=== PATIENT | female | born 1965 | race Caucasian/White ===

== ENCOUNTER 2023-02-14 16:34 | Emergency (ER) | payer OTHER ==
[2023-02-14 16:51] VITALS: TEMP 98.1; BMI 22.4
[2023-02-14] MEDS ORDERED: ACETAMINOPHEN 1000 MG/100 ML BAG IVPB ONE (17:15)
[2023-02-14 17:32] LABS: HEMATOCRIT 42.8 % (32.4-45.2); HEMOGLOBIN 14.7 G/dL (10.7-15.3); MCHC 34.4 g/dl (32.0-36.0); MEAN CELL VOLUME 90.1 fl (80-96); MEAN PLT VOLUME 8.5 fl (7.5-11.1); PLATELET COUNT 325.7 10^3/uL (134-434); RBC 4.75 10^6/uL (3.60-5.2); RDW 13.7 % (11.6-15.6); WHITE BLOOD COUNT 12.6 10^3/uL (4.0-10.8)
[2023-02-14 17:34] LABS: INR 0.95 (0.83-1.09); PROTHROMBIN TIME (PATIENT) 10.9 SEC (9.7-13.0)
[2023-02-14 17:36] LABS: ACTIVATED PTT 30.8 SECONDS (25.2-36.5)
[2023-02-14 17:40] LABS: BILIRUBIN,TOTAL 0.9 mg/dl (0.2-1); CALCIUM 9.8 mg/dl (8.5-10); CREATININE 0.7 mg/dl (0.55-1.3); POTASSIUM 4.3 mmol/L (3.5-5.1)
[2023-02-14] MEDS ORDERED: ACETAMINOPHEN INJECTION 100 ML IVPB ONE (17:43)
[2023-02-14] MEDS ORDERED: SODIUM CHLORIDE 0.9% 500 ML INFUS.BAG IV ONE (18:03)
[2023-02-14] MEDS ORDERED: KETOROLAC TROMETHAMINE 30 MG/1 ML VIAL IVPUSH ONE (20:08)
[2023-02-14 20:09] VITALS: BP 139/91; PULSE 77; RESP 16
[2023-02-14] MEDS ORDERED: KETOROLAC TROMETHAMINE 30 MG/1 ML VIAL ONE (20:10)
[2023-02-14 21:50] LABS: PLATELET ESTIMATE ADEQUATE
[2023-02-14] MEDS ORDERED: HYALURONIDASE, HUMAN RECOMB (HYLENEX) 150 UNIT/ML VIAL SQ ONE (22:39)
[2023-02-15] MEDS ORDERED: HYALURONIDASE, HUMAN RECOMB (HYLENEX) 150 UNIT/ML VIAL SQ ONE ×2 (01:45)
== END 2023-02-14 22:00 | disposition home or self-care (01) ==
LOC: FER 16:34
PROC: 3E033NZ Introduction of Analgesics, Hypnotics, Sedatives into Peripheral Vein, Percutaneous Approach (ICD-10-PCS; principal; 2023-02-14)
PROC: 3E033GC Introduction of Other Therapeutic Substance into Peripheral Vein, Percutaneous Approach (ICD-10-PCS; 2023-02-14)
DX: R22.0 Localized swelling, mass and lump, head (principal); M27.2 Inflammatory conditions of jaws
CPT/HCPCS: 36415; 70487-TC; 70491-TC; 80053; 85027; 85610; 85730; 87040; 99285-25; Q9967

== ENCOUNTER 2023-02-14 23:40 | Observation (INO) | payer OTHER ==
[2023-02-15] MEDS ORDERED: LIDOCAINE HCL 1%, 10 MG/ML (50 mL VIAL) INF ONE (00:13)
[2023-02-15] MEDS ORDERED: LIDOCAINE HCL 1%, 10 MG/ML (10ML VIAL) MDV ONE (00:17)
[2023-02-15] MEDS ORDERED: LIDOCAINE HCL/PF 1% SDV 5ML VIAL ONE (00:18)
[2023-02-15] MEDS ORDERED: HYALURONIDASE, HUMAN RECOMB (HYLENEX) 150 UNIT/ML VIAL SQ ONE ×2 (00:46→01:40)
[2023-02-15] MEDS ORDERED: ACETAMINOPHEN 1000 MG/100 ML BAG IVPB ONE (02:48)
[2023-02-15] MEDS ORDERED: morphine CARPU-JECT 4 MG/1 ML DISP.SYRIN IVPUSH ONE (02:48)
[2023-02-15] MEDS ORDERED: morphine SULFATE 4 MG/ML VIAL ONE (02:55)
[2023-02-15] MEDS ORDERED: ACETAMINOPHEN INJECTION 100 ML IVPB ONE (02:55)
[2023-02-15 03:11] LABS: BASO % 0.6 % (0-2.0); EOS % 0.5 % (0-4.5); HEMATOCRIT 36.2 % (32.4-45.2); HEMOGLOBIN 12.4 GM/dL (10.7-15.3); LYMPH % 35.3 % (8-40); MCH 29.6 pg (25.7-33.7); MCHC 34.3 g/dl (32.0-36.0); MEAN CELL VOLUME 86.3 fl (80-96); MEAN PLT VOLUME 8.1 fl (7.5-11.1); MONO % 8.5 % (3.8-10.2); NEUT % 55.1 % (42.8-82.8); PLATELET COUNT 311 10^3/uL (134-434); RDW 13.1 % (11.6-15.6); WHITE BLOOD COUNT 8.6 K/mm3 (4.0-10.0)
[2023-02-15] MEDS ORDERED: CLINDAMYCIN 600MG PREMIX IVPB 600 MG/50 ML BAG IVPB SCH (03:15)
[2023-02-15] MEDS ORDERED: CLINDAMYCIN IN 0.9 % SOD CHLOR 600 MG/50 ML BAG IVPB SCH (03:27)
[2023-02-15 03:31] LABS: POTASSIUM 3.9 mmol/L (3.5-5.1)
[2023-02-15 03:32] LABS: ALBUMIN 3.6 g/dl (3.4-5.0); CALCIUM 8.8 mg/dL (8.5-10.1)
[2023-02-15 03:34] LABS: BLOOD UREA NITROGEN 17.1 mg/dL (7-18)
[2023-02-15 03:35] LABS: CREATININE 0.6 mg/dL (0.55-1.3)
[2023-02-15 03:37] LABS: BILIRUBIN,TOTAL 0.3 mg/dL (0.2-1); TOT PROT 6.4 g/dl (6.4-8.2)
[2023-02-15] MEDS: SODIUM CHLORIDE 1,000 ML IV SCH (05:56)
[2023-02-15] MEDS: KETOROLAC TROMETHAMINE 15 MG/ML VIAL IVPUSH PRN (06:25)
[2023-02-15 06:34] VITALS: RESP 18; BMI 22.3
[2023-02-15 08:32] LABS: BASO % 0.2 % (0-2.0); EOS % 0.7 % (0-4.5); HEMOGLOBIN 12.4 GM/dL (10.7-15.3); LYMPH % 31.6 % (8-40); MCH 30.9 pg (25.7-33.7); MCHC 35.6 g/dl (32.0-36.0); MEAN CELL VOLUME 86.9 fl (80-96); MEAN PLT VOLUME 8.6 fl (7.5-11.1); MONO % 8.3 % (3.8-10.2); NEUT % 59.2 % (42.8-82.8); PLATELET COUNT 275 10^3/uL (134-434); RBC 4.03 M/mm3 (3.60-5.2); RDW 12.9 % (11.6-15.6); WHITE BLOOD COUNT 9.4 K/mm3 (4.0-10.0)
[2023-02-15 08:44] LABS: POTASSIUM 3.9 mmol/L (3.5-5.1)
[2023-02-15 08:47] LABS: ALBUMIN 3.6 g/dl (3.4-5.0); BLOOD UREA NITROGEN 13.6 mg/dL (7-18); CALCIUM 8.8 mg/dL (8.5-10.1)
[2023-02-15 08:50] LABS: CREATININE 0.5 mg/dL (0.55-1.3)
[2023-02-15 08:53] LABS: BILIRUBIN,TOTAL 0.6 mg/dL (0.2-1); TOT PROT 6.3 g/dl (6.4-8.2)
[2023-02-15] MEDS: ACETAMINOPHEN 325 MG TABLET (FP) PO PRN (16:09)
[2023-02-16] MEDS: SODIUM CHLORIDE 1,000 ML IV SCH ×2 (01:00→09:43)
[2023-02-16] MEDS: KETOROLAC TROMETHAMINE 15 MG/ML VIAL IVPUSH PRN (10:43)
[2023-02-16] MEDS: PANTOPRAZOLE 40 MG TABLET PO SCH (10:43)
[2023-02-16] MEDS: ACETAMINOPHEN 325 MG TABLET (FP) PO PRN (21:32)
[2023-02-17] MEDS: PANTOPRAZOLE 40 MG TABLET PO SCH (09:10)
[2023-02-17 13:23] VITALS: BP 140/87; PULSE 72; TEMP 97.8
== END 2023-02-17 14:52 | disposition home or self-care (01) ==
LOC: JER 23:40 → JERBED 02-15 02:35 → J5S 02-15 05:02
PROVIDERS: ADMIT Surgery; ATTEND Student in an Organized Health Care Education/Training Program
PROC: 0C9 Mouth and Throat, Drainage (ICD-10-PCS; principal; 2023-02-15)
PROC: 3E03329 Introduction of Other Anti-infective into Peripheral Vein, Percutaneous Approach (ICD-10-PCS; 2023-02-15)
PROC: 3E033NZ Introduction of Analgesics, Hypnotics, Sedatives into Peripheral Vein, Percutaneous Approach (ICD-10-PCS; 2023-02-15)
PROC: 3E0333Z Introduction of Anti-inflammatory into Peripheral Vein, Percutaneous Approach (ICD-10-PCS; 2023-02-15)
PROC: 3E0337Z Introduction of Electrolytic and Water Balance Substance into Peripheral Vein, Percutaneous Approach (ICD-10-PCS; 2023-02-15)
DX: K11.3 Abscess of salivary gland (principal); R22.0 Localized swelling, mass and lump, head; T50.995A Adverse effect of other drugs, medicaments and biological substances, initial encounter; Y92.89 Other specified places as the place of occurrence of the external cause
CPT/HCPCS: 10160; 36415; 76942-TC; 80053; 85025; 87040; 87070; 87075; 87102; 87116; 87205; 87206; 87210; 93005; 93010; 96365; 96372; 96375; 96376; 99285-25; C9803-CS; G0378; J3473; U0003; U0005

== ENCOUNTER 2023-03-21 11:35 | Inpatient (IN) | payer OTHER ==
[2023-03-21 11:48] VITALS: RESP 18; BMI 22.4
[2023-03-21] MEDS ORDERED: MEROPENEM 1 GM in DEXTROSE 5%-WATER 100 ML IVPB ONE (12:34)
[2023-03-21 12:54] LABS: BASO % 0.6 % (0-2.0); EOS % 0.8 % (0-4.5); HEMATOCRIT 41.7 % (32.4-45.2); LYMPH % 27.5 % (8-40); MCHC 33.6 g/dl (32.0-36.0); MEAN CELL VOLUME 89.4 fl (80-96); MEAN PLT VOLUME 8.2 fl (7.5-11.1); MONO % 7.3 % (3.8-10.2); NEUT % 63.8 % (42.8-82.8); PLATELET COUNT 327 10^3/uL (134-434); RBC 4.66 M/mm3 (3.60-5.2); RDW 13.6 % (11.6-15.6); WHITE BLOOD COUNT 7.1 K/mm3 (4.0-10.0)
[2023-03-21 13:08] LABS: INR 0.98 (0.83-1.09); PROTHROMBIN TIME (PATIENT) 11.4 SEC (9.7-13.0)
[2023-03-21] MEDS: CLINDAMYCIN 300 MG PREMIX IVPB 300 MG/50 ML BAG IVPB SCH ×2 (13:20→21:21)
[2023-03-21 13:29] LABS: CHLORIDE 107 mmol/L (98-107); POTASSIUM 4.5 mmol/L (3.5-5.1); SODIUM 141 mmol/L (136-145)
[2023-03-21 13:32] LABS: ERYTHROCYTE SEDIMENTATION RATE 3 mm/hr (0-30)
[2023-03-21 13:33] LABS: ALBUMIN 4.6 g/dl (3.4-5.0); ANION GAP 7 MMOL/L (8-16); BLOOD UREA NITROGEN 13.8 mg/dL (7-18); CALCIUM 10.4 mg/dL (8.5-10.1); CO2 27 mmol/L (21-32); GLUCOSE,RANDOM 95 mg/dL (74-106)
[2023-03-21 13:36] LABS: CREATININE 0.7 mg/dL (0.55-1.3); SGPT/ALT 31 U/L (13-61)
[2023-03-21 13:37] LABS: SGOT/AST 22 U/L (15-37)
[2023-03-21 13:38] LABS: BILIRUBIN,TOTAL 0.6 mg/dL (0.2-1); TOT PROT 8.1 g/dl (6.4-8.2)
[2023-03-21 13:39] LABS: ALK PHOS 101 U/L (45-117)
[2023-03-21] MEDS ORDERED: ACETAMINOPHEN 1000 MG/100 ML BAG IVPB ONE (13:50)
[2023-03-21] MEDS ORDERED: ACETAMINOPHEN INJECTION 100 ML IVPB ONE (13:54)
[2023-03-21] MEDS ORDERED: ACETAMINOPHEN 325 MG TABLET (FP) PO PRN (15:21)
[2023-03-22] MEDS: traMADol HCL 50 MG TABLET PO PRN ×3 (02:44→21:22)
[2023-03-22] MEDS: CLINDAMYCIN 300 MG PREMIX IVPB 300 MG/50 ML BAG IVPB SCH ×3 (04:36→17:34)
[2023-03-22] MEDS: MEROPENEM 1 GM in DEXTROSE 5%-WATER 100 ML IVPB SCH ×2 (14:23→17:52)
[2023-03-23] MEDS: CLINDAMYCIN 300 MG PREMIX IVPB 300 MG/50 ML BAG IVPB SCH (02:32)
[2023-03-23] MEDS: MEROPENEM 1 GM in DEXTROSE 5%-WATER 100 ML IVPB SCH ×4 (02:32→17:47)
[2023-03-23 09:04] VITALS: TEMP 98.5
[2023-03-23 09:10] LABS: HEMATOCRIT 41.3 % (32.4-45.2); HEMOGLOBIN 13.9 GM/dL (10.7-15.3); MCH 29.6 pg (25.7-33.7); MCHC 33.6 g/dl (32.0-36.0); MEAN CELL VOLUME 88.1 fl (80-96); MEAN PLT VOLUME 7.9 fl (7.5-11.1); PLATELET COUNT 299 10^3/uL (134-434); RBC 4.69 M/mm3 (3.60-5.2); RDW 13.8 % (11.6-15.6); WHITE BLOOD COUNT 5.8 K/mm3 (4.0-10.0)
[2023-03-23] MEDS: traMADol HCL 50 MG TABLET PO PRN (09:46)
[2023-03-23 14:29] VITALS: BP 133/90; PULSE 92
== END 2023-03-23 19:35 | disposition home or self-care (01) | DRG 603 ==
LOC: JER 11:35 → UNDOADMOB 13:58 → JERBED 13:58 → INTOOBSV 13:58 → J6S 14:47 → JERBED 14:47 → J6S 15:01 → JERBED 15:01 → OBSVTOIN 03-23 10:10
PROVIDERS: ADMIT Internal Medicine; ATTEND Internal Medicine
DX: L03.211 Cellulitis of face (principal)
CPT/HCPCS: 36415; 70486-TC; 80053; 85025; 85027; 85610; 85651; 86140; 87040; 87635; 93005; 93010; 99285-25; G0378